=== PATIENT | female | born 1975 | race African-American/Black ===

== ENCOUNTER 2016-05-05 03:08 | Emergency (ER) | payer MEDICARE, MEDICAID ==
[~2016-05-05] VITALS: Ht 170.2 cm; Wt 75.0 kg
[2016-05-05 06:48] VITALS: BP 120/72
== END 2016-05-05 06:40 | disposition home or self-care (01) ==
LOC: ER 03:09
DX: S70.312A Abrasion, left thigh, initial encounter (principal); L03.116 Cellulitis of left lower limb; F12.10 Cannabis abuse, uncomplicated; F17.200 Nicotine dependence, unspecified, uncomplicated; X58.XXXA Exposure to other specified factors, initial encounter; Y93.89 Activity, other specified; Y92.89 Other specified places as the place of occurrence of the external cause; Y99.8 Other external cause status
CPT/HCPCS: 99283

== ENCOUNTER 2020-04-09 00:51 | Emergency (ER) | payer MEDICAID, MEDICARE ==
[~2020-04-09] VITALS: Ht 170.2 cm; Wt 82.0 kg
[2020-04-09] MEDS ORDERED: KETOROLAC 60MG/2ML VIAL IM STA (01:15)
[2020-04-09 01:33] LABS: CLARITY URINE CLOUDY (CLEAR); COLOR URINE ORANGE (YELLOW); KETONES URINE NEGATIVE (NEGATIVE); LEUKOCYTE ESTERASE URINE 3+ (NEGATIVE); NITRITE URINE NEGATIVE (NEGATIVE); OCCULT BLOOD URINE 3+ (NEGATIVE); PH URINE 6.5 (4.5-8.0); PROTEIN URINE TRACE (NEGATIVE); SPECIFIC GRAVITY URINE 1.017 (1.005-1.030); UROBILINOGEN URINE 0.2 E.U./dL (0.2-1.0)
[2020-04-09] MEDS ORDERED: NAPR-1176 MT (02:20)
[2020-04-09] MEDS ORDERED: SULF1TAB48 MT (02:20)
[2020-04-09 02:40] VITALS: BP 127/63
== END 2020-04-09 02:40 | disposition home or self-care (01) ==
LOC: ER 00:51
DX: K08.89 Other specified disorders of teeth and supporting structures (principal); N39.0 Urinary tract infection, site not specified; F12.10 Cannabis abuse, uncomplicated
CPT/HCPCS: 81003; 81025; 87086; 96372; 99283; J1885

== ENCOUNTER 2020-07-03 09:18 | Emergency (ER) | payer MEDICAID ==
[~2020-07-03] VITALS: Ht 170.2 cm; Wt 89.0 kg
[~2020-07-03 09:18] MED LIST: NAPR-1176 MT; SULF1TAB48 MT
[2020-07-03 11:44] VITALS: BP 141/87
[2020-07-03] MEDS ORDERED: IBUPROFEN 600MG TABLET PO ONE (12:30)
[2020-07-03 12:38] LABS: CLARITY URINE CLOUDY (CLEAR); COLOR URINE YELLOW (YELLOW); KETONES URINE NEGATIVE (NEGATIVE); LEUKOCYTE ESTERASE URINE 3+ (NEGATIVE); NITRITE URINE NEGATIVE (NEGATIVE); OCCULT BLOOD URINE 3+ (NEGATIVE); PROTEIN URINE 1+ (NEGATIVE); SPECIFIC GRAVITY URINE 1.024 (1.005-1.030)
[2020-07-03 13:00] LABS: METHADONE URINE SCREEN NEGATIVE (NEGATIVE); OPIATES URINE SCREEN NEGATIVE (NEGATIVE)
[2020-07-03 13:01] LABS: *BARBITURATES SCREEN URINE NEGATIVE (NEGATIVE); *BENZODIAZEPINES SCREEN URINE NEGATIVE (NEGATIVE); *COCAINE SCREEN URINE NEGATIVE (NEGATIVE); PHENCYCLIDINE URINE SCREEN NEGATIVE (NEGATIVE)
[2020-07-03 13:04] LABS: *AMPHETAMINES SCREEN URINE PRESUMTIVE POSITIVE (NEGATIVE); CANNABINOID URINE SCREEN PRESUMTIVE POSITIVE (NEGATIVE)
== END 2020-07-03 12:38 | disposition left against medical advice (07) ==
LOC: ER 09:18
DX: N39.0 Urinary tract infection, site not specified (principal); F12.10 Cannabis abuse, uncomplicated; Z59.0 Homelessness
CPT/HCPCS: 80305; 81003; 81025; 93005; 99284

== ENCOUNTER 2020-07-21 02:19 | Emergency (ER) | payer MEDICAID ==
[~2020-07-21] VITALS: Ht 172.7 cm; Wt 84.0 kg
[2020-07-21 02:21] VITALS: BP 119/90
[2020-07-21 05:28] LABS: CLARITY URINE TURBID (CLEAR); COLOR URINE DARK YELLOW (YELLOW); KETONES URINE NEGATIVE (NEGATIVE); LEUKOCYTE ESTERASE URINE 2+ (NEGATIVE); NITRITE URINE POSITIVE (NEGATIVE); OCCULT BLOOD URINE 3+ (NEGATIVE); PROTEIN URINE 2+ (NEGATIVE); SPECIFIC GRAVITY URINE 1.035 (1.005-1.030); UROBILINOGEN URINE 0.2 E.U./dL (0.2-1.0)
[2020-07-21] MEDS ORDERED: CEPH500T MT (05:37)
[2020-07-21 05:45] LABS: *BARBITURATES SCREEN URINE NEGATIVE (NEGATIVE)
[2020-07-21] MEDS ORDERED: CEPHALEXIN 250MG CAPSULE PO ONE (05:45)
[2020-07-21 05:46] LABS: *COCAINE SCREEN URINE NEGATIVE (NEGATIVE); METHADONE URINE SCREEN NEGATIVE (NEGATIVE); OPIATES URINE SCREEN NEGATIVE (NEGATIVE); PHENCYCLIDINE URINE SCREEN NEGATIVE (NEGATIVE)
[2020-07-21 06:16] LABS: *AMPHETAMINES SCREEN URINE PRESUMTIVE POSITIVE (NEGATIVE); *BENZODIAZEPINES SCREEN URINE PRESUMTIVE POSITIVE (NEGATIVE)
[2020-07-21 06:17] LABS: CANNABINOID URINE SCREEN PRESUMTIVE POSITIVE (NEGATIVE)
== END 2020-07-21 06:00 | disposition home or self-care (01) ==
LOC: ER 02:19
DX: N39.0 Urinary tract infection, site not specified (principal); R00.0 Tachycardia, unspecified; F15.10 Other stimulant abuse, uncomplicated; F16.10 Hallucinogen abuse, uncomplicated; F13.10 Sedative, hypnotic or anxiolytic abuse, uncomplicated; F12.10 Cannabis abuse, uncomplicated
CPT/HCPCS: 80305; 81003; 81025; 99283

== ENCOUNTER 2020-08-14 08:09 | Emergency (ER) | payer MEDICAID, OTHER ==
[~2020-08-14] VITALS: Ht 165.1 cm; Wt 75.0 kg
[~2020-08-14 08:09] MED LIST changes: +CEPH500T MT
[2020-08-14 08:13] VITALS: BP 123/63
[2020-08-14] MEDS ORDERED: LIDOCAINE HCL/EPINEPHRINE 1%-EPI 1:100,000 20 ML VIAL INFIL ONE (08:30)
[2020-08-14] MEDS ORDERED: BACITRACIN ZINC OINT UDPKT TOP ONE (08:30)
[2020-08-14] MEDS ORDERED: DOXYCYCLINE HYCLATE 100MG CAPSULE PO ONE (09:15)
[2020-08-14] MEDS ORDERED: SULFAMETHOXAZOLE/TRIMETHOPRIM 800/160MG TABLET PO ONE (09:15)
[2020-08-14] MEDS ORDERED: SULF1TAB48 MT (09:33)
[2020-08-14] MEDS ORDERED: DOXY100C2 MT (09:33)
[2020-08-14] MEDS ORDERED: IBUP-2029 MT (09:33)
== END 2020-08-14 09:59 | disposition home or self-care (01) ==
LOC: ER 08:09
DX: L03.317 Cellulitis of buttock (principal); L02.31 Cutaneous abscess of buttock; F14.10 Cocaine abuse, uncomplicated; F12.10 Cannabis abuse, uncomplicated; F17.210 Nicotine dependence, cigarettes, uncomplicated
CPT/HCPCS: 81025; 99283; A4217; J3490; Z7610

== ENCOUNTER 2020-10-01 01:35 | Emergency (ER) | payer MEDICAID, OTHER ==
[~2020-10-01] VITALS: Ht 170.2 cm; Wt 73.0 kg
[~2020-10-01 01:35] MED LIST changes: +DOXY100C2 MT; +IBUP-2029 MT
[2020-10-01 01:51] VITALS: BP 119/86
== END 2020-10-01 04:28 | disposition home or self-care (01) ==
LOC: ER 01:35
DX: F15.10 Other stimulant abuse, uncomplicated (principal); F14.10 Cocaine abuse, uncomplicated; F12.10 Cannabis abuse, uncomplicated
CPT/HCPCS: 99281

== ENCOUNTER 2020-10-01 13:27 | Emergency (ER) | payer MEDICAID ==
[~2020-10-01] VITALS: Ht 170.2 cm; Wt 82.0 kg
[2020-10-01 13:45] VITALS: BP 146/73
== END 2020-10-01 17:56 | disposition left against medical advice (07) ==
LOC: ER 13:27
DX: Z53.21 Procedure and treatment not carried out due to patient leaving prior to being seen by health care provider (principal)

== ENCOUNTER 2021-07-18 02:16 | Emergency (ER) | payer OTHER ==
[~2021-07-18] VITALS: Ht 167.6 cm; Wt 77.6 kg
[~2021-07-18 02:16] MED LIST changes: -DOXY100C2 MT; +DOXY100C5 MT
[2021-07-18 02:30] VITALS: BP 123/88
[2021-07-18 05:27] LABS: BASOPHILS % 0.9 % (0.0-2.0); EOSINOPHILS % 4.2 % (0.0-5.0); HEMATOCRIT. 35.3 % (36.0-48.0); HEMOGLOBIN. 11.4 g/dL (12.0-16.0); LYMPHOCYTES % 37.2 % (20.0-50.0); MEAN CORPUSCULAR HEMOGLOBIN 28.5 pg (28.0-32.0); MEAN CORPUSCULAR VOLUME 88.1 fL (81.0-99.0); MEAN PLATELET VOLUME 7.9 fl (7.4-10.4); MONOCYTES % 8.5 % (2.0-8.0); NEUTROPHILS % 49.2 % (40.0-76.0); PLATELET 386 x1000/uL (130-400); RED BLOOD CELL COUNT 4.01 mill/uL (4.2-5.4); RED CELL DISTRIBUTION WIDTH 16.3 % (11.6-14.6)
[2021-07-18 05:46] LABS: CHLORIDE 107 mEq/L (98-107)
[2021-07-18 05:47] LABS: HCG SCREEN NEGATIVE
[2021-07-18 05:52] LABS: ETHANOL BLOOD < 10 mg/dL
== END 2021-07-18 10:04 | disposition home or self-care (01) ==
LOC: ER 02:16
DX: F15.10 Other stimulant abuse, uncomplicated (principal); F91.8 Other conduct disorders; Z20.822 Contact with and (suspected) exposure to COVID-19; F10.10 Alcohol abuse, uncomplicated; Y90.0 Blood alcohol level of less than 20 mg/100 ml
CPT/HCPCS: 36415; 80053; 80307; 80320; 80329; 84703; 85025; 99283; G0480

== ENCOUNTER 2021-08-22 04:14 | Emergency (ER) | payer MEDICAID, OTHER ==
[~2021-08-22] VITALS: Ht 170.2 cm; Wt 74.5 kg
[2021-08-22 04:17] VITALS: BP 152/98
[2021-08-22] MEDS ORDERED: CLINDAMYCIN HCL 150MG CAPSULE PO SCH (12:00)
== END 2021-08-22 06:37 | disposition home or self-care (01) ==
LOC: ER 04:14
DX: L03.211 Cellulitis of face (principal); F15.10 Other stimulant abuse, uncomplicated; F14.10 Cocaine abuse, uncomplicated; F12.10 Cannabis abuse, uncomplicated
CPT/HCPCS: 99281